=== PATIENT | female | born 1935 | race Caucasian/White ===

== ENCOUNTER 2024-05-01 17:02 | Emergency (ER) | payer MEDICARE, BC ==
[2024-05-01 17:56] VITALS: BP 195/66; PULSE 51
[2024-05-01] MEDS: Proparacaine 0.5% Ophth Soln 15 ML Bottle EYERT ONE (18:00)
== END 2024-05-01 18:40 | disposition home or self-care (01) ==
LOC: JP.ED 17:02
DX: S05.01XA Injury of conjunctiva and corneal abrasion without foreign body, right eye, initial encounter (principal); I10 Essential (primary) hypertension; E78.00 Pure hypercholesterolemia, unspecified; Z79.82 Long term (current) use of aspirin; Z79.899 Other long term (current) drug therapy; X58.XXXA Exposure to other specified factors, initial encounter; Z88.8 Allergy status to other drugs, medicaments and biological substances; Z88.0 Allergy status to penicillin; Z88.2 Allergy status to sulfonamides
CPT/HCPCS: 99283; A9270